=== PATIENT | male | born 1940 | race Caucasian/White ===

== ENCOUNTER → 2017-12-01 | Outpatient (CLI) | payer MEDICARE, OTHER ==
[~2017-12-01] MED LIST: ASPIR 8181 MG PO; HYDROCODONE-AP1 EAC6 PO; MOBIC15 MG PO; PRINZIDE 20-251 EACH PO; UNICOMPLEX M TA1 TA1 PO; ZOCOR 10 MG TAB10 MG PO
== END ==
LOC: M.ULTRA 08:43
DX: I65.23 Occlusion and stenosis of bilateral carotid arteries (principal); E78.5 Hyperlipidemia, unspecified; R09.89 Other specified symptoms and signs involving the circulatory and respiratory systems

== ENCOUNTER → 2021-01-06 | Outpatient (CLI) | payer MEDICARE, OTHER ==
[2021-01-06 09:51] LABS: CALCIUM 9.5 mg/dL (8.5-10.1)
== END ==
LOC: M.LAB 08:29
PROVIDERS: ATTEND Nurse Practitioner
DX: I10 Essential (primary) hypertension (principal)